=== PATIENT | female | born 1980 | race Hispanic/Latino ===

== ENCOUNTER 2017-05-31 13:45 | Emergency (ER) | payer OTHER ==
[~2017-05-31] VITALS: Ht 157.5 cm; Wt 88.5 kg
[~2017-05-31 13:45] MED LIST: ALPRAZOLAM2 M2 PO; ANAPROX DS1 TAB PO; CYCLOBENZAPRINE10 M1 PO; CYCLOBENZAPRINE10 MG PO; DAILY MULTIPLE1 TAB PO; FLEXERIL10 MG PO; FLUOXETINE HCL10 M2 PO; HYDROCODONE/ACE1 TA1 PO; IBUPROFEN800 M1 PO; IBUPROFEN800 MG PO; MECLIZINE HCL12.5 M1 PO; NAPHCON A 0.02515 ML OPH; PERCOCET 5-3251 EACH PO; VALACYCLOVIR1000 MG PO; VIBRAMYCIN 100100 MG PO; VOLTAREN 5 ML5 ML OPH; VYVANSE40 M1 PO; [UNRECOGNIZED DRUG - OTHER] OPH
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
[2017-05-31 15:59] VITALS: BP 130/98
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
== END 2017-05-31 16:49 ==
LOC: ERH 13:45
DX: S06.0X0A Concussion without loss of consciousness, initial encounter (principal); W22.8XXA Striking against or struck by other objects, initial encounter; Y93.9 Activity, unspecified; Y92.9 Unspecified place or not applicable
CPT/HCPCS: 81025